=== PATIENT | male | born 1945 | race African-American/Black ===

== ENCOUNTER 2017-07-02 10:08 | Day surgery (SDC) | payer MEDICARE, MEDICAID ==
[2017-07-01 15:51] VITALS: BMI 34.0
[~2017-07-02 10:08] MED LIST: Iopamidol 370 76% 50 ML VIAL FS ONE
[2017-07-02] MEDS ORDERED: Propofol 500 MG/50 ML VIAL ONE ×2 (11:36→14:06)
[2017-07-02 11:40] LABS: #Eosinphils 0.1 thou/uL (0.0-0.7); #Lymphocytes 1.2 thou/uL (1.20-3.40); #Monocytes 0.4 thou/uL (0.11-0.59); #Neutrophils 3.5 thou/uL (1.40-6.50); %Basophils 0.5 % (0.0-1.0); %Eosinophils 2.7 % (0.0-10.0); %Lymphocytes 22.8 % (21.0-51.0); %Monocytes 7.9 % (0.0-10.0); Hematocrit 42.8 % (42.0-52.0); Mean Platelet Volume 7.5 fL (7.4-10.4); Red Blood Cell (RBC) Count 4.44 mill/uL (4.70-6.10); White Blood Cell (WBC) Count 5.3 thou/uL (4.8-10.8)
[2017-07-02] MEDS ORDERED: Glycopyrrolate 0.2 MG/ML 5 ML SYRINGE ONE (11:42)
[2017-07-02] MEDS ORDERED: PHENYLEPHRINE-NS 100 MCG/ML 10 ML SYRINGE ONE (11:42)
[2017-07-02 11:54] LABS: PTT 28.1 SEC (22.9-36.1); Prothrombin Time 12.9 SEC (12.0-14.7)
[2017-07-02 12:03] LABS: Anion Gap 15 mmol/L (10-20); BUN (Urea Nitrogen) 12 mg/dL (8.4-25.7); Calc. Creatinine Clearance 125 mL/min (70-130); Carbon Dioxide 22 mmol/L (23-31); Chloride 105 mmol/L (98-107); Estimated GFR-MDRD Greater than 90
[2017-07-02] MEDS ORDERED: Labetalol HCl 100 MG/20 ML SYR ONE (13:38)
[2017-07-02] MEDS ORDERED: Propofol 200 MG/20 ML VIAL ONE (13:38)
[2017-07-02] MEDS ORDERED: Fentanyl 100 MCG/2 ML VIAL ONE (15:54)
--- NOTE | 2017-07-02 17:43 | RAD ---
EXAM: ONE VIEW CHEST 07/02/17 COMPARISON: 06/09/17 HISTORY: Postoperative exam. FINDINGS: Redemonstration of left sided transvenous defibrillator. Lead position appears to now have changed w ith one lead over the right atrium. The second lead appears to be projecting over the right ventricl e. Pneumothorax is not appreciated. Normal cardiac silhouette. The pulmonary vessels and hilum are n ormal. Minimal blunting of the right costophrenic angle. Left costophrenic angle is clear. Patchy in terstitial opacities in the right lung base. Cervical fusion hardware is noted. IMPRESSION: Interval change and addition of transvenous defibrillator wires. No pneumothorax. POS: [facility]
[2017-07-02] MEDS ORDERED: Ondansetron HCl/PF 4 MG/2 ML Vial IVP PRN (18:05)
[2017-07-02] MEDS ORDERED: Promethazine HCl 25 MG/ML VIAL IM/IV PRN (18:05)
[2017-07-02] MEDS ORDERED: Non-Formulary Medication 1 EACH PO PRN (18:05)
== END 2017-07-02 18:27 | disposition home or self-care (01) ==
LOC: CCL 10:08
PROVIDERS: ATTEND Internal Medicine Cardiovascular Disease
PROC: 0JH60PZ Insertion of Cardiac Rhythm Related Device into Chest Subcutaneous Tissue and Fascia, Open Approach (ICD-10-PCS; principal; 2017-07-02)
PROC: 0JPT0PZ Removal of Cardiac Rhythm Related Device from Trunk Subcutaneous Tissue and Fascia, Open Approach (ICD-10-PCS; 2017-07-02)
DX: Z45.018 Encounter for adjustment and management of other part of cardiac pacemaker (principal); I42.8 Other cardiomyopathies; J44.9 Chronic obstructive pulmonary disease, unspecified; I11.0 Hypertensive heart disease with heart failure; I50.22 Chronic systolic (congestive) heart failure; M10.9 Gout, unspecified; E66.9 Obesity, unspecified; M54.5 Low back pain; G89.29 Other chronic pain; M19.90 Unspecified osteoarthritis, unspecified site; F17.210 Nicotine dependence, cigarettes, uncomplicated; N40.0 Benign prostatic hyperplasia without lower urinary tract symptoms; Z79.82 Long term (current) use of aspirin; Z79.899 Other long term (current) drug therapy; Z68.34 Body mass index [BMI] 34.0-34.9, adult; Z96.7 Presence of other bone and tendon implants; Z98.1 Arthrodesis status; Z98.890 Other specified postprocedural states; Z86.59 Personal history of other mental and behavioral disorders; Z80.9 Family history of malignant neoplasm, unspecified
CPT/HCPCS: 33216; 33271; 33272; 36005; 71010; 75820; 80048; 85025; 85610; 85730; 93005; 93640; 96374; C1777; 93010; J2704; J3010; J3490

== ENCOUNTER 2017-09-05 01:24 | Emergency (ER) | payer MEDICARE, MEDICAID ==
[2017-09-05 02:07] LABS: #Eosinphils 0.3 thou/uL (0.0-0.7); #Lymphocytes 1.3 thou/uL (1.20-3.40); #Monocytes 0.5 thou/uL (0.11-0.59); #Neutrophils 4.5 thou/uL (1.40-6.50); %Basophils 0.2 % (0.0-1.0); %Eosinophils 3.8 % (0.0-10.0); %Lymphocytes 19.7 % (21.0-51.0); %Monocytes 8.1 % (0.0-10.0); Hematocrit 39.3 % (42.0-52.0); Mean Platelet Volume 7.7 fL (7.4-10.4); Red Blood Cell (RBC) Count 3.99 mill/uL (4.70-6.10); White Blood Cell (WBC) Count 6.6 thou/uL (4.8-10.8)
[2017-09-05 02:10] LABS: PTT 27.4 SEC (22.9-36.1); Prothrombin Time 12.6 SEC (12.0-14.7)
[2017-09-05 02:27] LABS: ALT (SGPT) 37 U/L (8-55); AST (SGOT) 50 U/L (5-34); Alkaline Phosphatase 109 U/L (40-150); Anion Gap 11 mmol/L (10-20); BUN (Urea Nitrogen) 11 mg/dL (8.4-25.7); Bilirubin, Total 0.4 mg/dL (0.2-1.2); Calc. Creatinine Clearance 0 mL/min (70-130); Calcium 9.2 mg/dL (7.8-10.44); Carbon Dioxide 27 mmol/L (23-31); Chloride 104 mmol/L (98-107); Estimated GFR-MDRD Greater than 90; Globulin 3.6 g/dL (2.4-3.5)
[2017-09-05] MEDS ORDERED: Ketorolac Tromethamine 30 MG/ML VIAL ONE (03:58)
--- NOTE | 2017-09-05 08:10 | ULT ---
PRELIMINARY REPORT/[facility]/EMERGENCY AFTER HOURS PROCEDURE: EXAM: US Abdomen Limited, Right Upper Quadrant EXAM DATE/TIME: Exam ordered 09/05/2017 2:05 AM CLINICAL HISTORY: 71 years old, male; Pain; Other: Upper abd pain, HX of gallstones TECHNIQUE: Real-time ultrasound of the right upper quadrant with image documentation. COMPARISON: No relevant prior studies available. FINDINGS: Liver: Unremarkable. No mass. No intrahepatic bile duct dilation. Gallbladder: Gallbladder is full of gallstones. No wall thickening or pericholecystic fluid. Equivoca l sonographic Luis sign. Common bile duct: Unremarkable as visualized. No stones. No dilation. Pancreas: Unremarkable as visualized. Right kidney: Unremarkable. No stones. No solid mass. No hydronephrosis. IMPRESSION: Cholelithiasis. No evidence of cholecystitis. Thank you for allowing us to participate in the care of your patient. Dictated and Authenticated by: Cristi Thompson MD 09/05/2017 2:40 AM Central Time ([place] & [place]) FINAL REPORT EMERGENT AFTER HOURS RIGHT UPPER QUADRANT ULTRASOUND: DATE: 09/05/17. HISTORY: History of gallstones. The patient is having upper abdominal pain. IMPRESSION: 1. Cholelithiasis with gallbladder filled with multiple gallbladder calculi. The gallbladder wall t hickness is at the upper limits of normal measuring 0.3 cm. The common duct is normal in caliber sarah suring 0.5 cm. No pericholecystic fluid is seen. Findings are in agreement with the preliminary rep ort by [employer]. POS: [facility]
== END 2017-09-05 04:21 | disposition home or self-care (01) ==
LOC: ERS 01:24
DX: R10.11 Right upper quadrant pain (principal); R10.13 Epigastric pain; I11.0 Hypertensive heart disease with heart failure; I50.9 Heart failure, unspecified; F17.210 Nicotine dependence, cigarettes, uncomplicated; Z79.82 Long term (current) use of aspirin; Z79.891 Long term (current) use of opiate analgesic; Z79.899 Other long term (current) drug therapy
CPT/HCPCS: 36415; 76705; 80053; 82274; 85025; 85610; 85730; 96372; J1885

== ENCOUNTER 2017-10-28 12:22 | Outpatient (CLI) | payer MEDICARE, MEDICAID ==
--- NOTE | 2017-10-28 13:50 | ULT ---
BILATERAL LOWER EXTREMITY ARTERIAL DOPPLER: HISTORY: Atherosclerosis. COMPARISON: None. FINDINGS: Real-time, alba scale, color Doppler with spectral analysis of the bilateral extremity arterial syste m was performed. Right Side: Common femoral artery peak systolic velocity 98.3 cm/s with triphasic waveform. The deep femoral art rafael peak systolic velocity is 72 cm/s with triphasic waveform. The proximal femoral artery peak syst olic velocity is 84 cm/s with triphasic waveform. Mid femoral artery peak systolic velocity is 78.7 cm/s with triphasic waveform. Distal femoral artery peak systolic velocity 96.2 cm/s with triphasic w aveform. Popliteal artery peak systolic velocity is 69 cm/s with triphasic waveform. The posterior tibial artery peak systolic velocity is 51 cm/s with triphasic waveform. Anterior tibial artery has triphasic waveform with peak systolic velocity of 62 cm/s. Dorsalis pedis has a monophasic waveform peak systolic velocity of 30 cm/s. Left Side: Common femoral artery peak systolic velocity 104 cm/s with triphasic waveform. The deep femoral nguyen ry peak systolic velocity is 64 cm/s with triphasic waveform. Proximal femoral artery peak systolic velocity 107 cm/s with triphasic waveform. Mid femoral artery peak systolic velocity is 92 cm/s with triphasic waveform. Distal femoral artery peak systolic velocity is 79 cm/s with triphasic waveform . Popliteal triphasic waveform peak systolic velocity of 75 cm/s. Anterior tibial artery peak systo lic velocity of 59 cm/s with triphasic waveform. Posterior tibial artery peak systolic velocity 51 c m/s with triphasic waveform. The dorsalis pedis artery peak systolic velocity is 34 cm/s with tripha sic waveform. IMPRESSION: Predominately triphasic waveforms throughout the lower extremities with monophasic waveform in the ri ght dorsalis pedis. No abnormal focal doubling of peak systolic velocities to suggest hemodynamicall y significant stenosis. POS: [facility]
== END 2017-10-28 12:23 | disposition home or self-care (01) ==
LOC: ULT 12:22
PROVIDERS: ATTEND Family Medicine
DX: I70.203 Unspecified atherosclerosis of native arteries of extremities, bilateral legs (principal); G57.93 Unspecified mononeuropathy of bilateral lower limbs
CPT/HCPCS: 93923

== ENCOUNTER 2017-11-15 09:56 | Outpatient (CLI) | payer MEDICARE, MEDICAID ==
[2017-11-15 11:30] LABS: #Eosinphils 0.2 thou/uL (0.0-0.7); #Lymphocytes 1.1 thou/uL (1.20-3.40); #Monocytes 0.4 thou/uL (0.11-0.59); #Neutrophils 4.8 thou/uL (1.40-6.50); %Basophils 0.1 % (0.0-1.0); %Eosinophils 2.6 % (0.0-10.0); %Lymphocytes 17.3 % (21.0-51.0); %Monocytes 6.8 % (0.0-10.0); %Neutrophils 73.2 % (42.0-75.0); Hemoglobin 14.5 g/dL (14.0-18.0); Mean Corpuscular HGB CONC 33.9 g/dL (32.0-36.0); Mean Corpuscular Hemoglobin 32.9 pg (27.0-31.0); Mean Corpuscular Volume 97.1 fl (80.0-94.0); Mean Platelet Volume 7.8 fL (7.4-10.4); Platelet Count 199 thou/uL (130-400); RBC Distribution Width 11.8 % (11.5-14.5); Red Blood Cell (RBC) Count 4.41 mill/uL (4.70-6.10); White Blood Cell (WBC) Count 6.5 thou/uL (4.8-10.8)
[2017-11-15 11:55] LABS: ALT (SGPT) 35 U/L (8-55); AST (SGOT) 41 U/L (5-34); Albumin 3.6 g/dL (3.4-4.8); Alkaline Phosphatase 87 U/L (40-150); Anion Gap 11 mmol/L (10-20); BUN (Urea Nitrogen) 13 mg/dL (8.4-25.7); Bilirubin, Total 0.7 mg/dL (0.2-1.2); Calc. Creatinine Clearance 0 mL/min (70-130); Calcium 9.5 mg/dL (7.8-10.44); Carbon Dioxide 25 mmol/L (23-31); Chloride 107 mmol/L (98-107); Estimated GFR-MDRD 90; Globulin 3.6 g/dL (2.4-3.5); Glucose 111 mg/dL (80-115); Protein, Total 7.2 g/dL (5.8-8.1); Sodium 139 mmol/L (136-145)
--- NOTE | 2017-11-16 06:30 | EKG ---
Test Reason : Blood Pressure : / mmHG Vent. Rate : 069 BPM Atrial Rate : 069 BPM P-R Int : 170 ms QRS Dur : 092 ms QT Int : 432 ms P-R-T Axes : 061 050 018 degrees QTc Int : 462 ms Sinus rhythm with occasional Premature ventricular complexes Cannot rule out Anterior infarct , age undetermined (Doubtful) Abnormal ECG When compared with ECG of 02-JUL-2017 12:16, No significant change was found Confirmed by SHAMEKA WILKINSON ([id number]) on 11/16/2017 6:30:19 AM Referred By: JACKLYN Confirmed By:SHAMEKA WILKINSON
== END 2017-11-15 09:57 | disposition home or self-care (01) ==
LOC: LABBT 09:56
PROVIDERS: ATTEND Surgery
DX: Z01.810 Encounter for preprocedural cardiovascular examination (principal); Z01.812 Encounter for preprocedural laboratory examination; K80.20 Calculus of gallbladder without cholecystitis without obstruction
CPT/HCPCS: 80053; 85025; 93005; 93010

== ENCOUNTER 2017-11-19 07:16 | Day surgery (SDC) | payer MEDICARE, MEDICAID ==
[2017-11-15 10:47] VITALS: BMI 32.5
[2017-11-19] MEDS ORDERED: CEFAZOLIN/Water 2 GM/20 ML SYRINGE ONE (08:12)
[2017-11-19] MEDS ORDERED: Fentanyl 100 MCG/2 ML VIAL ONE (09:13)
[2017-11-19] MEDS ORDERED: Bupivacaine PF 0.5% 30 ML VIAL ONE (09:20)
[2017-11-19] MEDS ORDERED: Lidocaine 1% w/Epinephrine 1:200K 30 ML VIAL ONE (09:20)
[2017-11-19] MEDS ORDERED: Iothalamate Meglumine 60% 50 ML VIAL FS ONE (09:20)
--- NOTE | 2017-11-19 09:58 | RAD ---
PORTABLE AP CHEST: Date: 11/19/17 HISTORY: Preoperative evaluation. COMPARISON: 07/02/17. FINDINGS: A single lead left subclavian AICD device is noted in place. Cardiac silhouette is magnified by proje ction. Pulmonary vasculature is within normal limits. The lungs are clear. There appear to be two greg ds from the AICD device on the prior exam, but only a single lead is seen on today's exam. There is n o other interval change. IMPRESSION: No acute cardiopulmonary process. POS: [facility]
[2017-11-19] MEDS ORDERED: HYDROcodone/Acetaminophen 5/325 mg Tablet ONE (12:42)
--- NOTE | 2017-11-19 13:03 | RAD ---
OPERATIVE CHOLANGIOGRAM: Date: 11/19/17 HISTORY: Intraoperative cholangiogram imaging during cholecystectomy procedure. FINDINGS/IMPRESSION: A single fluoroscopic image is presented. This image shows opacification of the common bile duct. No filling defect or stricture identified. POS: [facility]
--- NOTE | 2017-11-19 13:21 | PDOC.OP ---
Operative Note - Operative Note Operative Note: PROCEDURE: Laparoscopic cholecystectomy with intraoperative cholangiogram SURGEON: Rosanna German M.D. DATE OF PROCEDURE: 11/19/2017 PREOPERATIVE DIAGNOSIS: Cholelithiasis and cholecystitis, possible choledocholithiasis: POSTOPERATIVE DIAGNOSIS: Cholelithiasis and cholecystitis HISTORY: Patient with fairly chronic postprandial right upper quadrant pain and gallstones, for which laparoscopic cholecystectomy was recommended. He was found to have a mild elevation in AST on preoperative labs so cholangiogram was recommended to rule out choledocholithiasis. FINDINGS: Extensive midline omental adhesions. Chronically distended white walled thickened gallbladder with multiple stones. Small cystic duct with normal cholangiogram PROCEDURE IN DETAIL: After informed consent was obtained and appropriate preoperative antibiotics were administered, the patient was taken to the operating room and placed in the supine position and general endotracheal anesthesia was administered. The stomach was decompressed with an OG tube and the abdomen was prepped and draped in standard sterile fashion. Local anesthesia was infused to the skin and subcutaneous tissues at the right subcostal level. A transverse skin incision was made. The fascia was elevated and a Veress needle was placed into the abdominal cavity without difficulty. Opening pressure was less than 5 but daiana rapidly to 15. It was felt that gas was being insufflated into the preperitoneal tissues. The extension was extended and dissection carried down to the anterior rectus sheath which was incised. Stay sutures were placed and the underlying muscles split. The posterior rectus sheath was grasped and drawn up into the wound and incised. No significant adhesions were seen. A trocar was placed and carbon dioxide gas easily insufflated to an intra-abdominal pressure of 15, which the patient tolerated well. The abdominal cavity was carefully examined. There was no evidence of Veress needle or of trocar injury. The gallbladder was tensely distended and thickened and white walled in appearance. The patient had extensive omental adhesions down his midline to well beyond the level of the umbilicus. The decision was made to place the remaining ports lateral to these adhesions. Local anesthesia was infused to the skin and subcutaneous tissues at the right periumbilical, right upper quadrant, and right lateral abdominal sites and trocars were placed under direct vision of the laparoscope. The fundus of the gallbladder was grasped and retracted superiorly. The infundibulum was grasped and retracted laterally. The serosa was stripped inferiorly at the level of the neck of the gallbladder exposing the cystic duct and artery which were traced clearly to their insertion in the gallbladder. There was a lot of fibrosis at the level of the neck of the gallbladder consistent with chronic inflammation. The cystic duct was dissected free circumferentially and clipped at the level of the neck of the gallbladder. An incision was made in the cystic duct inferior to the clip and the cystic duct was palpated with no stones palpable. Clear bile was seen to flow from the cystic duct incision. A cholangiogram catheter was introduced and placed into the cystic duct and secured with a clamp. A cholangiogram was obtained which showed an adequate length of cystic duct. There was normal filling of the common bile duct with free flow of contrast into the duodenum. There was normal retrograde flow into the common hepatic duct beyond the level of the bifurcation without filling defects. The cholangiogram catheter was removed and the cystic duct clipped below the incision in the cystic duct. The cystic duct was divided between these clips and the previously placed clip. The cystic artery was located behind the cystic duct and was clipped and divided. A second small branch was also clipped and divided. The gallbladder was then dissected free of the gallbladder bed using hook electrocautery. Prior to complete removal of the gallbladder from the gallbladder bed, the area of the cystic duct and artery stumps was examined. The clips were in good position completely across these structures and there was no bleeding and no leakage of bile. The gallbladder was then placed into an EndoCatch bag and drawn out through the right epigastric incision. The right epigastric trocar was replaced and the operative site easily irrigated to clear. There was no significant bleeding or spillage of bile. The epigastric trocar was removed and the fascia closed under direct laparoscopic vision with a 0 Vicryl suture on a GraNee needle in a [id number] manner with excellent technical result. The stay sutures in the anterior rectus sheath were then secured as well. The right upper quadrant and right lateral abdominal trocars were removed and hemostasis verified. Carbon dioxide gas was allowed to desufflate through the umbilical trocar which was then removed. The skin incisions were closed with 4-0 subcuticular Monocryl sutures and Dermabond dressings were placed. The patient was extubated and taken to the recovery room in good condition. There were no complications. ESTIMATED BLOOD LOSS: Minimal. SPECIMEN : Gallbladder and contents.
[2017-11-19] MEDS ORDERED: Glycopyrrolate 0.2 MG/ML 5 ML SYRINGE ONE (14:05)
[2017-11-19] MEDS ORDERED: Lidocaine 1% PF 5 ML VIAL ONE (14:05)
[2017-11-19] MEDS ORDERED: PROPOFOL 200 MG/20 ML VIAL ONE (14:05)
[2017-11-19] MEDS ORDERED: Ondansetron HCl/PF 4 MG/2 ML Vial ONE (14:05)
== END 2017-11-19 13:25 | disposition home or self-care (01) ==
LOC: SDC 07:16
PROVIDERS: ATTEND Surgery
PROC: 0FT44ZZ Resection of Gallbladder, Percutaneous Endoscopic Approach (ICD-10-PCS; principal; 2017-11-19)
PROC: BF00YZZ Plain Radiography of Bile Ducts using Other Contrast (ICD-10-PCS; 2017-11-19)
DX: K80.10 Calculus of gallbladder with chronic cholecystitis without obstruction (principal); I11.0 Hypertensive heart disease with heart failure; I50.9 Heart failure, unspecified; M10.9 Gout, unspecified; F17.210 Nicotine dependence, cigarettes, uncomplicated; J45.909 Unspecified asthma, uncomplicated; F41.9 Anxiety disorder, unspecified; F41.0 Panic disorder [episodic paroxysmal anxiety]; Z79.82 Long term (current) use of aspirin; Z79.899 Other long term (current) drug therapy; Z98.1 Arthrodesis status; Z95.810 Presence of automatic (implantable) cardiac defibrillator; Z98.890 Other specified postprocedural states
CPT/HCPCS: 47532; 71045; 88304; J0131; J2001; J2405; J2704; J3010; Q9961; S0020